=== PATIENT | male | born 1955 | race Caucasian/White ===

== ENCOUNTER 2019-01-28 16:26 | Observation (INO) | payer OTHER ==
[2019-01-28 19:49] LABS: ADD MAN DIFF? NO
[2019-01-28 19:50] LABS: WHITE BLOOD COUNT 7.8 10^3/ul (4.8-10.8)
[2019-01-28 19:50] LABS: BASOPHIL # 0.1 10^3/ul (0.0-0.1); BASOPHILS % 0.6 % (0.0-2.0); EOSINOPHILS # 0.2 10^3/ul (0.0-0.5); EOSINOPHILS % 2.4 % (0.0-7.0); HEMATOCRIT 42.1 % (42.0-52.0); HEMOGLOBIN 13.6 g/dl (14.0-18.0); LYMPHOCYTES % 25.4 % (15.0-51.0); MEAN CORPUSCULAR HEMOGLOBIN 30.6 pg (29.0-33.0); MEAN CORPUSCULAR HGB CONC 32.3 g/dl (32.0-37.0); MEAN CORPUSCULAR VOLUME 94.8 fl (82.0-101.0); MEAN PLATELET VOLUME 9.5 fl (7.4-10.4); MONOCYTE # 0.6 10^3/ul (0.3-0.9); MONOCYTES % 7.7 % (0.0-11.0); NEUTROPHILS % 63.6 % (39.0-77.0); PLATELET COUNT 254 10^3/UL (140-415); RED BLOOD COUNT 4.44 10^6/ul (4.70-6.10); RED CELL DISTRIBUTION WIDTH 11.9 % (11.5-14.5)
[2019-01-28 20:06] LABS: ALANINE AMINOTRANSFERASE 25 IU/L (13-69); ALBUMIN 4.7 g/dl (3.3-4.9); ALBUMIN/GLOBULIN RATIO 1.67; ALKALINE PHOSPHATASE 56 IU/L (42-121); ANION GAP 12 (5-13); ASPARTATE AMINO TRANSFERASE 21 IU/L (15-46); BILIRUBIN,INDIRECT 0.5 mg/dl (0-1.1); BILIRUBIN,TOTAL 0.5 mg/dl (0.2-1.3); BLOOD UREA NITROGEN 15 mg/dl (7-20); CALCIUM 9.7 mg/dl (8.4-10.2); CARBON DIOXIDE 27 mmol/L (21-31); CHLORIDE 103 mmol/L (97-110); CREATININE 0.95 mg/dl (0.61-1.24); Estimated GFR > 60 mL/min (>60); GLUCOSE 76 mg/dl (70-220); POTASSIUM 4.1 mmol/L (3.5-5.1); SODIUM 142 mmol/L (135-144); TOTAL PROTEIN 7.5 g/dl (6.1-8.1)
[2019-01-28] MEDS: ASPIRIN 325 MG TAB PO (20:08)
[2019-01-28] MEDS: NITROGLYCERIN 2% 1 GM OINT PKT TD (20:08)
[2019-01-28 20:18] LABS: TROPONIN-I < 0.012 ng/ml (0.000-0.120)
[2019-01-28 22:19] LABS: B-TYPE NATRIURETIC PEPTIDE 64 PG/ML (0-125)
[2019-01-28] MEDS ORDERED: HYDROCODONE/APAP (5/325) TAB PO (22:30)
[2019-01-28] MEDS ORDERED: ACETAMINOPHEN 325 MG TAB PO ×2 (22:30)
[2019-01-28] MEDS ORDERED: NACL 0.9% 3 ML SYG IV (22:30)
[2019-01-28] MEDS ORDERED: ONDANSETRON 4 MG TAB PO (22:30)
[2019-01-28] MEDS ORDERED: DOCUSATE SODIUM 100 MG CAP PO (22:30)
[2019-01-28] MEDS ORDERED: ONDANSETRON 4 MG INJ IV (22:30)
[2019-01-28 23:06] LABS: CREATINE KINASE 54 IU/L (23-200)
[2019-01-28 23:14] LABS: D-DIMER 2907.92 ng/ml (<460)
[2019-01-28 23:18] LABS: CK INDEX 0.7; CK-MB 0.38 ng/ml (0.0-2.4); TROPONIN-I < 0.012 ng/ml (0.000-0.120)
[2019-01-28] MEDS: ATORVASTATIN 10 MG TAB PO (23:36)
[2019-01-28] MEDS: FAMOTIDINE 20 MG TAB PO (23:36)
[2019-01-29 00:06] LABS: ERYTHROCYTE SEDIMENTATION RATE 24 mm/Hr (0-20)
[2019-01-29 06:44] LABS: ADD MAN DIFF? NO
[2019-01-29 06:48] LABS: WHITE BLOOD COUNT 5.7 10^3/ul (4.8-10.8)
[2019-01-29 06:48] LABS: BASOPHILS % 0.5 % (0.0-2.0); EOSINOPHILS # 0.2 10^3/ul (0.0-0.5); EOSINOPHILS % 3.5 % (0.0-7.0); HEMATOCRIT 36.2 % (42.0-52.0); HEMOGLOBIN 11.6 g/dl (14.0-18.0); LYMPHOCYTES # 1.7 10^3/ul (0.8-2.9); LYMPHOCYTES % 30.3 % (15.0-51.0); MEAN CORPUSCULAR HEMOGLOBIN 30.7 pg (29.0-33.0); MEAN CORPUSCULAR VOLUME 95.8 fl (82.0-101.0); MONOCYTE # 0.5 10^3/ul (0.3-0.9); MONOCYTES % 8.5 % (0.0-11.0); NEUTROPHIL # 3.2 10^3/ul (1.6-7.5); NEUTROPHILS % 56.8 % (39.0-77.0); PLATELET COUNT 226 10^3/UL (140-415); RED BLOOD COUNT 3.78 10^6/ul (4.70-6.10)
[2019-01-29 07:07] LABS: CREATINE KINASE 49 IU/L (23-200)
[2019-01-29 07:19] LABS: CK INDEX 0.8; CK-MB 0.39 ng/ml (0.0-2.4); TROPONIN-I < 0.012 ng/ml (0.000-0.120)
[2019-01-29 07:21] LABS: ANION GAP 10 (5-13); BLOOD UREA NITROGEN 14 mg/dl (7-20); CALCIUM 8.6 mg/dl (8.4-10.2); CARBON DIOXIDE 26 mmol/L (21-31); CHLORIDE 105 mmol/L (97-110); CHOL/HDL RATIO 3.1 RATIO; CHOLESTEROL 90 mg/dl (100-200); CREATININE 0.82 mg/dl (0.61-1.24); Estimated GFR > 60 mL/min (>60); GLUCOSE 245 mg/dl (70-220); HDL CHOLESTEROL 29 mg/dl (30-78); LDL CHOLESTEROL,CALCULATED 43 mg/dl; POTASSIUM 4.3 mmol/L (3.5-5.1); SODIUM 141 mmol/L (135-144); TRIGLYCERIDES 88 mg/dl (0-149)
[2019-01-29 07:42] LABS: HEMOGLOBIN A1C 8.4 % (0-5.9)
[2019-01-29] MEDS: ACCU-CHEK XX ×4 (07:48→20:36)
[2019-01-29] MEDS: GLIMEPIRIDE 2 MG TAB PO ×2 (08:51→20:35)
[2019-01-29] MEDS: FAMOTIDINE 20 MG TAB PO ×2 (08:51→20:35)
[2019-01-29] MEDS: ESCITALOPRAM 20 MG TAB PO (08:51)
[2019-01-29] MEDS: TAMSULOSIN (SR) 0.4 MG CAP PO (08:51)
[2019-01-29] MEDS: BENAZEPRIL 40 MG TAB PO (08:52)
[2019-01-29] MEDS: ENOXAPARIN 40 MG/0.4 ML SYG SC (08:53)
[2019-01-29] MEDS ORDERED: GLUCOSE GEL 15 GRAM TUBE PO ×2 (10:00)
[2019-01-29] MEDS ORDERED: GLUCOSE GEL 15 GRAM TUBE BUCCAL (10:00)
[2019-01-29] MEDS ORDERED: DEXTROSE 50% 50 ML SYRINGE IV ×2 (10:00)
[2019-01-29] MEDS ORDERED: GLUCAGON 1 MG INJ IM (10:00)
[2019-01-29 12:36] LABS: TROPONIN-I < 0.012 ng/ml (0.000-0.120)
[2019-01-29] MEDS: REGADENOSON 0.4 MG/5 ML SYG (17:10)
[2019-01-29] MEDS: ATORVASTATIN 10 MG TAB PO (20:23)
[2019-01-29] MEDS: METOPROLOL 25 MG TAB PO (20:36)
[2019-01-29] MEDS: ENOXAPARIN 100 MG/ML SYG SC (20:59)
[2019-01-30] MEDS: ACCU-CHEK XX ×2 (08:15→11:20)
[2019-01-30] MEDS: TAMSULOSIN (SR) 0.4 MG CAP PO (08:17)
[2019-01-30] MEDS: BENAZEPRIL 40 MG TAB PO (08:18)
[2019-01-30] MEDS: METOPROLOL 25 MG TAB PO (08:18)
[2019-01-30] MEDS: EMPAGLIFLOZIN 10 MG TABLET PO (08:18)
[2019-01-30] MEDS: FAMOTIDINE 20 MG TAB PO (08:19)
[2019-01-30] MEDS: GLIMEPIRIDE 2 MG TAB PO (08:19)
[2019-01-30] MEDS: ASPIRIN 81 MG TAB PO (08:19)
[2019-01-30] MEDS: ESCITALOPRAM 20 MG TAB PO (08:19)
[2019-01-30] MEDS: ENOXAPARIN 100 MG/ML SYG SC (08:20)
[2019-01-30] MEDS: REGADENOSON 0.4 MG/5 ML SYG (11:35)
[2019-01-30] MEDS ORDERED: APIXABAN 5 MG TABLET PO (21:00)
[2019-01-31] MEDS ORDERED: BENAZEPRIL 20 MG TAB PO (09:00)
== END 2019-01-30 16:51 | disposition home or self-care (01) ==
LOC: TEL 22:15 → E/R 16:26
DX: R06.09 Other forms of dyspnea (principal); E11.9 Type 2 diabetes mellitus without complications; E78.5 Hyperlipidemia, unspecified; I10 Essential (primary) hypertension; I48.0 Paroxysmal atrial fibrillation; Z79.84 Long term (current) use of oral hypoglycemic drugs; Z79.82 Long term (current) use of aspirin; N40.0 Benign prostatic hyperplasia without lower urinary tract symptoms
CPT/HCPCS: 71045; 78452; 80048; 80053; 80061; 82550; 82553; 82962; 83036; 83880; 84443; 84484; 85025; 85378; 85651; 93005; 93017; 93306; G0378